=== PATIENT | male | born 1955 | race Caucasian/White ===

== ENCOUNTER → 2018-05-17 | Outpatient (CLI) | payer OTHER ==
[~2018-05-17] MED LIST: ACTOS15 MG PO; ADULT LOW DOSE81 MG PO; ALDACTONE25 MG PO; ALDACTONE50 MG PO; BENADRYL25 MG PO; CARVEDILOL25 MG PO; COMBIVENT INH; COREG CR20 MG PO; COZAAR 25MG TAB25 M1 PO; CYCLOPENTOLA1 %/2 M1 OP; FOLIC ACID1 MG PO; FUROSEMIDE 40 M40 M1 PO; GATIFLOXACIN; GEMFIBROZIL 60600 MG PO; GLUCOPHAGE500 MG; GLUCOPHAGE500 MG PO; K-DUR 20 MEQ T20 MEQ PO; MAG DELAY64 MG PO; MAG-OX 400 TAB400 M1 PO; PHENERGAN 25 MG25 M1 PO; PRED FORTE 1% EY5 M1 OP; QVAR HFA 440 MCG/UN1 INH; TRAZODONE 150150 M1 PO; TRILEPTAL150 MG PO; ULTRAM 50MG TAB50 MG PO; UNICOMPLEX M TA1 TA1; UNICOMPLEX M TA1 TA1 PO; VICODIN PO; WELCHOL 625 MG625 MG PO
== END ==
LOC: RAD 14:46
DX: M10.071 Idiopathic gout, right ankle and foot (principal)

== ENCOUNTER → 2019-04-17 | Outpatient (CLI) | payer OTHER ==
[~2019-04-17] VITALS: Ht 175.3 cm; Wt 97.5 kg
[~2019-04-17] MED LIST changes: +ALLOPURINOL 10100 M1 PO; +CO Q-10100 MG PO; +CRESTOR10 MG PO; +CYMBALTA30 MG PO; +FISH OIL 1,001000 M2 PO; -GATIFLOXACIN; +GATIFLOXACIN OPHTHALMIC; +GLUCOSAMINE H1500 MG PO; +KETO PO; +LOVASTATIN 20 M20 MG PO; +MAGOX 400400 MG PO; +METFORMIN HCL1000 MG PO; +PRESERVISION A1 EAC2 PO; +PROTONIX40 M1 PO; +VITAMIN B-121000 MC3 PO; +VITAMIN B-12500 MCG PO; +VITAMIN D1000 UNIT PO; +VITAMIN E100 UNI3 PO; +VITAMINC500 PO
--- NOTE | 2019-04-19 08:09 | P ---
[facility] [place] [address] PROCEDURE REPORT Name: ISABELLALORI Sandip Room #: REG [facility] Mihir#: [id number] Admission: 04/17/19 Attend Phys: Andrade Dyer Discharge: Date of : 53 Report #: [id number] THIS REPORT FOR: //name// CC: Andrade Galeano DATE OF SERVICE: 04/17/2019 PROCEDURE PERFORMED: Upper endoscopy with biopsies. HISTORY OF PRESENT ILLNESS: The patient is a 63-year-old male who is well known to me with previous history of hepatitis C and hepatitis B. He was treated for his hepatitis C with Harvoni. He also had a previous history of alcohol abuse, last upper endoscopy was in 2015. Possible short segment of Glez. I did not take biopsies as there was a possible trace varices in the distal esophagus, small hiatal hernia was noted at that time and mild gastritis. Biopsies at that time were negative for H. pylori. The patient does take Prilosec on a daily basis. In general, this controls the symptoms. REASON FOR UPPER ENDOSCOPY: Intermittent nausea. He is on multiple medications. He denies any dysphagia. Denies any emesis. He denies any bleeding. DESCRIPTION OF PROCEDURE: The risks and benefits of the procedure were explained to the patient, those risks including but not limited to bleeding, perforation and the risk of sedation. He understood these risks and gave informed consent. Sedation was given using propofol and ketamine per Anesthesia. Next, using a standard Olympus upper endoscope, the scope was placed in the patient's mouth and advanced under direct vision through the esophagus, stomach and into the second portion of the duodenum. The larynx was normal in appearance. The upper and mid esophagus was normal. Again, at the GE junction, a possible short segment of Glez was noted. No obvious varices, but again due to his previous history of hepatitis as well as alcohol use, there is possible trace varices in this area. I did not obtain biopsies. There is no esophagitis noted or stricture. Overall, the gastric mucosa was normal in the fundus and body, mild erythema was noted in the gastric antrum. Biopsies were obtained to rule out H. pylori. The pylorus was normal and patent. The duodenal bulb, first and second portion were all normal. The scope was then withdrawn and the procedure terminated. The patient tolerated the procedure well. IMPRESSION: 1. Mild gastritis. 2. 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 [facility] [address] [place] [address] PROCEDURE REPORT Name: LORI MASON Room #: REG CLConrado Leonard.#: [id number] Admission: 04/17/19 Attend Phys: Andrade Dyer Discharge: Date of : 53 Report #: [id number] 3. Otherwise, normal upper endoscopy. RECOMMENDATIONS: 1. Await biopsy results. 2. Would continue PPI therapy. 3. Could consider Zofran on a p.r.n. basis. Thank you for allowing me to participate in his care. <ELECTRONICALLY SIGNED> By: Andrade Mojica MD 04/19/19 0809 1014 2215 Andrade Mojica MD /nt
--- NOTE | 2019-04-19 14:07 | PATH ---
[facility] [address] [place] [address] PATHOLOGY RPT PROCEDURE Name: LARON MASON Room #: REG [facility] Aisha.#: [id number] Admission: 04/17/19 Date of : 53 Discharge: Report #: [id number] Path Case #: [id number] [facility] Accession Number: [id number] . 01 Material submitted: . stomach - BIOPSY GASTRITIS R/O H. PYLORI . 01 Clinical history: . Reflux, vomiting Gastritis Rule out H. pylori . 02 Diagnosis: Stomach, biopsy: - Chronic superficial gastritis, mild. - No evidence of Helicobacter pylori on immunoperoxidase stain. . (SKM:mml; 04/19/2019) COUNT INCLUDES THE [facility] 04/19/2019 1012 Local . 02 Electronically signed: . Lazaro Jensen MD, Pathologist NPI- [id number] . 01 Gross description: . The specimen is received in formalin, labeled "Laron Mason, BX gastritis" and consists of 3 fragments of pink-sandoval tissue measuring between 0.3 x 0.2 cm and 0.6 x 0.3 cm which are entirely submitted in A1. (SDY; 04/18/2019) SYU/SYU 04/18/2019 1055 Local . 02 Pathologist provided ICD-10: K29.30 . 02 CPT . 897968, D91639 Specimen Comment: A courtesy copy of this report has been sent to Specimen Comment: [phone], . Specimen Comment: Report sent to / DR BOYCE Performed at: [address], [place] [id number] MD Koffi Herrmann MD Phone: [phone] Performed at: [address] [id number] MD Belén Wilhelm MD Phone: [phone]
== END | disposition home or self-care (01) ==
LOC: GI 08:19
DX: R11.0 Nausea (principal); K29.50 Unspecified chronic gastritis without bleeding; K44.9 Diaphragmatic hernia without obstruction or gangrene; F17.210 Nicotine dependence, cigarettes, uncomplicated; F32.9 Major depressive disorder, single episode, unspecified; I10 Essential (primary) hypertension; E78.5 Hyperlipidemia, unspecified; E11.9 Type 2 diabetes mellitus without complications; J45.909 Unspecified asthma, uncomplicated; Z98.890 Other specified postprocedural states; Z79.899 Other long term (current) drug therapy; Z88.8 Allergy status to other drugs, medicaments and biological substances; Z79.82 Long term (current) use of aspirin; Z95.5 Presence of coronary angioplasty implant and graft; Z95.810 Presence of automatic (implantable) cardiac defibrillator
CPT/HCPCS: 62110; 62900

== ENCOUNTER 2019-05-15 14:06 | Inpatient (IN) | payer OTHER ==
[~2019-05-15] VITALS: Ht 175.3 cm; Wt 90.3 kg
[2019-05-15 14:19] VITALS: BP 113/80
[2019-05-15] MEDS ORDERED: CARVEDILOL12.5 MG PO (14:32)
[2019-05-15] MEDS ORDERED: JANUVIA100 MG PO (14:37)
[2019-05-15] MEDS ORDERED: WELLBUTRIN SR150 M1 PO (14:37)
[2019-05-15 14:57] LABS: ABSOLUTE NEUTROPHILS 5.2 thou/uL (1.4-8.2); BASOPHILS 0.7 % (0.0-2.0); EOSINOPHILS 1.7 % (0.0-3.0); HEMATOCRIT 42.9 % (42.0-52.0); HEMOGLOBIN 14.7 gm/dL (14.0-18.0); LYMPHOCYTES 28.7 % (24.0-44.0); MCHC 34.2 g/dL (28.0-37.0); MCV 90.5 fL (80.0-100.0); MONOCYTES 7.8 % (1.0-8.0); PLATELET COUNT 120 thou/uL (150-400); POLYS 61.1 % (36.0-66.0); RBC 4.74 mil/uL (4.50-6.00); RDW 13.6 % (10.5-14.5); WBC 8.6 thou/uL (4.0-11.0)
[2019-05-15 15:04] LABS: ANION GAP 10 mmol/L (7-16); BUN 22 mg/dL (7-18); CALCIUM 9.7 mg/dL (8.5-10.1); CHLORIDE 103 mmol/L (98-107); CO2 26 mmol/L (21-32); CREATININE 1.5 mg/dL (0.7-1.3); GLUCOSE 104 mg/dL (74-106); POTASSIUM 4.4 mmol/L (3.5-5.1); SODIUM 139 mmol/L (136-145)
[2019-05-15 15:15] LABS: ALBUMIN 3.9 g/dL (3.4-5.0); MAGNESIUM 1.3 mg/dL (1.8-2.4); SALICYLATE 4.7 mg/dL (2.8-20.0); SGOT 30 U/L (15-37); SGPT 33 U/L (30-65); TOTAL BILIRUBIN 0.7 mg/dL (<0.1-1.0); TOTAL PROTEIN 7.8 g/dL (6.4-8.2); TROPONIN-I <0.06 ng/mL (<0.06)
[2019-05-15 16:29] VITALS: BP 123/93
[2019-05-15 16:38] LABS: URINE BILIRUBIN NEGATIVE (Negative); URINE BLOOD NEGATIVE (Negative); URINE CLARITY CLEAR; URINE COLOR YELLOW; URINE GLUCOSE-RANDOM* NEGATIVE (Negative); URINE KETONES NEGATIVE (Negative); URINE LEUKOCYTES-REFLEX NEGATIVE (Negative); URINE NITRITE-REFLEX NEGATIVE (Negative); URINE PROTEIN (DIPSTICK) NEGATIVE (Negative); URINE UROBILINOGEN 0.2 E.U./dl (0.2-1.0)
[2019-05-15 16:45] LABS: AMP/METHAMP Negative (Negative); BARBITURATES Negative (Negative); BENZODIAZEPINES Negative (Negative); COCAINE Negative (Negative); METHADONE Negative (Negative); OPIATES Negative (Negative); PCP Negative (Negative)
[2019-05-15 18:07] VITALS: BP 104/71
--- NOTE | 2019-05-15 19:45 | NUR ---
PT ARRIVES TO FLOOR FROM ER ACCOMPNIED BY JOHAN. REPORTS INCREASED DEPRESSIVE SYMPTOMS INCLUDING SIGNIFICANT INSOMNIA SLEEPING ONLY 1 HR PER NIGHT X 2-3 NIGHTS-INCREASED IRRITABILITY,AGITATION FEELINGS OF HOPLESSNESS-DENIES ACTIVE SI/SH-DOES REPORT SOME RECENT PASSIVE SI THOUGHTS "EASIER TO BE " ORIENTED TO ROOM AND UNIT-FOOD FLUIDS OFFERED ACCEPTED
[2019-05-15 20:05] VITALS: BP 124/82
--- NOTE | 2019-05-15 20:07 | NUR ---
63 yo male admitted per stretcher to 525 for SI without a plan. Reports increased depression over past several months r/t relationship with . Increased frequency of SI over past 3 days but has no plan. Alert and orientated to self, place and situation. Thought today was 05/05. Calm t/o assessment but states that he is anxious and upset. Able to ambulate without difficulty in room. Color pink with brisk capillary refill and palpable peripheral pulses. No edema. Regular HR auscultated. Pacemaker palpated in L upper chest. Breath sounds clear t/o, bilaterally equal. Active bowel sounds over soft, rounded abdomen. Stool this am by self report. R eye without vision, states retina is detached. orientated to unit by nurse gastroenterology manager, home for evening.
--- NOTE | 2019-05-16 00:55 | NUR ---
Care assumed of patient at 1915: Patient alert and oriented x4. Patient pleasant and cooperative. Patient restless at times and is observed pacing about the unit and his room. Patient compliant with nursing assessment. Patient denies SI/HI/AH. Patient reports that he was in his room earlier and had visualized his sheets moving. Patient stated that he understands that they were not moving but it "caught my attention". Patient expresses concern that he is not going to be able to sleep tonight. Patient states that he has not been able to sleep for a full night since approximately 2 weeks ago. No delusional or paranoia behaviors observed. Denies pain or discomfort. Patient reported that he had not ate dinner and was hungry. Patient offered a meal tray in which he ate 100%. Patient took HS medication whole without difficulty. Spoke with NIYAH Bailey, and obtained an order for Trazodone 25mg po 1x dose, may repeat in 1 hour if still awake. First dose was provided and patient was able to sleep approximately 1.5 hours. Patient provided second dose and is currently resting quietly. No agitation or aggression observed. Patient has been repectful and appreciative this shift.
--- NOTE | 2019-05-16 07:49 | EKG ---
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: MP : 1955 Requested By: David Ha Order Number: [id number] MD: Ector Booker Measurements Intervals [place] Rate: 69 P: 41 NH: 175 QRS: -55 QRSD: 117 T: -2 QT: 404 QTc: 433 Interpretive Statements Sinus rhythm Left anterior fascicular block Anterior infarct, old Compared to ECG 12/25/2009 11:32:57 Left anterior fascicular block now present Left-axis deviation no longer present Myocardial infarct finding still present Electronically Signed On 05-16-2019 7:49:49 CDT by Ector Booker [email or web address] <ELECTRONICALLY SIGNED> By: Ector Booker MD 05/16/19 0749 1624 1624 Ector Booker MD /EPI
[2019-05-16 09:09] VITALS: BP 114/83
--- NOTE | 2019-05-16 10:13 | NUR ---
ASSUMED CARE AT 0700 THIS MORNING. PT. COOPERATIVE WITH TAKING MEDICATIONS, EATING ON THE UNIT. DURING MORNING GROUP, HOWEVER, HE EASILY GOT AGITATED WITH THE GROUP AND WALKED OUT STATING IN A LOUD VOICE, "I AM NOT HERE FOR THAT, I THOUGHT YOU GOT WELL HERE". HE PACED IN THE [place] FOR A WHILE, BEFORE SETTLING DOWN IN A CHAIR ON THE UNIT. THIS RN TALKED TO THE PT. AFTER GROUP, HE APPOLOGIZED TO RT LUAN. HE THEN RETURNED TO HIS ROOM. HIS GOAL TODAY IS TO TALK TO 2 INDIVIDUALS TODAY.
[2019-05-16 10:17] VITALS: BP 114/83
--- NOTE | 2019-05-16 16:43 | NUR ---
SONU contacted [facility] to inquire about their PHP groups. She was told by the front desk receptionist that pt will need to present in person for an intake. He can do so M,W, F at [address] or M-F at [address] . He will need his photo i.d. and insurance. SW team will continue to follow pt during his stay.
[2019-05-16 19:50] VITALS: BP 123/81
--- NOTE | 2019-05-17 00:12 | NUR ---
Care assumed of patient at 1915: Patient alert and oriented x4. Patient pleasant and calm. Patient compliant with nursing assessment. Denies pain or discomfort. Denies SI/HI/AH/VH. No delusional or paranoia behaviors observed. Patient observed sitting in another peers room conversing. Patient educated that he is not to be in other peers rooms and they could converse in the day room. Patient apologetic and stated he understood. Patient declined HS snack. Patient took HS medication whole without difficulty. Patient then observed in his room conversing with the same peer. Patient re-directed again that peers may not be in other peers rooms. Patient again apologetic and came with peer to the day room to converse. Patient requested "sleeping pill". Patient informed that the dose of Trazodone he received the previous night was a one time dose. Patient became anxious and asked how he was supposed to sleep. Nurse notified NIYAH Reynolds and order was obtained for Trazodone 50mg po qHS. Patient reports that "this is not the place for a robb like me" and he is excited to go home tomorrow. Spoke with patient about his insomnia, depression and anxiety. Patient stated that he felt better now. Patient up pacing the unit at approximately 2230. Trazodone offered to patient. Patient is now refusing and states that he wants to try to sleep without it. Patient states he needs to get home and "make things right" with his . Patient continues to have broken sleep at this time.
--- NOTE | 2019-05-17 07:30 | NUR ---
Assumed care of patient this am. Patient ambulatory sitting in the mileu. Patient calm, content, and pleasant. Patients affect relaxed and normal. Patient alert and oriented x4. Breath sounds clear bilaterally, bowel sounds present, heart tones audible s1 and s2. Patient denies pain. Patient adherent with scheduled medications.
[2019-05-17 08:00] VITALS: BP 119/86
[2019-05-17 08:28] VITALS: BP 119/86
[2019-05-17] MEDS ORDERED: TRAZODONE HCL50 MG PO (11:22)
[2019-05-17] MEDS ORDERED: TRILEPTAL150 MG PO (11:25)
[2019-05-17 11:28] VITALS: BP 119/86
--- NOTE | 2019-05-17 11:35 | NUR ---
SONU D/C note SW met with pt's and pt. Pt agreed to go to [facility] to enroll in services for PHP classes. said she agrees for him to come home as long as he goes through with that plan. Pt admitted that he and talked about a separation. Both said they did better when she was working and he stayed at home; the retired again in 2014. The psych doctor came into the meeting and provided instruction on medication, and education to pt and on the benefits of PHP group classes. No other needs for SW team to address at this time.
--- NOTE | 2019-05-18 23:06 | H ---
[facility] [place] [address] HISTORY AND PHYSICAL Name: KADENLORI THACKER Room #: 525B-B DIS IN M.R.#: [id number] Admission: 05/15/19 Attend Phys: Leland Watt DO Discharge: 05/17/19 Date of : 53 Report #: [id number] THIS REPORT FOR: //name// CC: Leland Watt Lazaro Lara DATE OF SERVICE: 05/16/2019 INPATIENT PSYCHIATRIC EVALUATION ATTENDING PHYSICIAN: Leland Watt DO [employer] OPERATOR: Hospitalist Service, Dr. Chin Engle. REASON FOR ADMISSION: Severe depression including suicidal ideation. SOURCES OF INFORMATION: Interview with the patient, chart review. HISTORY OF PRESENT ILLNESS: This is a 63-year-old male [place]. The patient presented to the Emergency Room at [facility] yesterday with complaints of agitation. He was brought to the ED because over the last 2 days, he has become increasingly hostile and agitated. His accompanied him and she stated 4 days ago, he was switched from taking duloxetine to Wellbutrin and she thinks that is what has caused his recent behavior change. The patient reported that he is frustrated and that he does not want to be here. He reported that "when people tell me to calm down and then I am going to be okay, I feel like I want to go crazy on someone and chop their head off." He states that he feels like he just "wants to ." He states he is anxious right now and he feels like this typically smokes marijuana and feels a lot better. He stated he is feeling anxious and upset because his health is bad. He reports having cirrhosis secondary to hepatitis C and alcohol use, heart failure due to massive WI in 2003 with residual ejection fraction of 25%. The patient is also angry because he states he went to [facility] little over a week ago for vomiting and diarrhea and they told him nothing was wrong and felt like nobody was listening to him. Additionally, he told me he received in the mail a $9000 bill from [facility]. He denies any chest pain, abdominal pain, nausea or vomiting at this time. Per , the patient gets agitated when he drinks, but never this severe. In the ER, she reported he has not drink in a week. The patient states it has been 3 months, unclear why there is a discrepancy. PAST MEDICAL HISTORY: Includes non-insulin dependent diabetes mellitus; WI in 2003; oral surgery, maxillary extractions, upper denture; controlled GERD; asthma, no inhalers; hypertension; hyperlipidemia; cirrhosis with hepatitis C, diagnosed and treated in 2014; retinal detachment on his right eye. [facility] [address] [place] [address] HISTORY AND PHYSICAL Name: LORI MASON Room #: 525B-B [facility] IN M.R.#: [id number] Admission: 05/15/19 Attend Phys: Leland Watt DO Discharge: 05/17/19 Date of : 53 Report #: [id number] PAST SURGICAL HISTORY: Included arthroscopic surgery on the right knee, colonoscopy, cardiac stent placement in 2003, oral surgery due for maxillary extractions. PCP is Dr. Lara; chamber walker, Dr. Omkar Macdonald. SUBSTANCE HISTORY: Smoking x 30 years. Prior to 5 years ago, the patient used drugs heavily. He reports using cocaine, LSD, Quaaludes in the past things such as that. HOME MEDICATIONS: Numerous and include spironolactone 50 mg daily, furosemide 40 mg p.o. daily, carvedilol 12.5 mg p.o. b.i.d., sitagliptin which is Januvia 100 mg p.o. daily, bupropion 150 mg p.o. daily, aspirin 81 mg p.o. daily, folic acid 1 mg daily, losartan 25 mg daily, magnesium oxide 400 mg daily, metformin 1000 mg p.o. b.i.d., allopurinol 100 mg daily, pantoprazole 40 mg p.o. daily, rosuvastatin 10 mg p.o. daily., Co-Q vitamins, cyanocobalamin 1000 mcg p.o. daily, fish oil 1000 mcg p.o. daily, multivitamin, cholecalciferol 1000 units daily, glucosamine 1500 mg p.o. q.a.m., vitamin C 1000 mg p.o. q.a.m., vitamin E 100 units p.o. q.a.m. ALLERGIES: LISINOPRIL causes itching. REVIEW OF SYSTEMS: Yesterday from the ER, CONSTITUTIONAL: Denies fever, chills, malaise, and unexplained weight change. RESPIRATORY: Denies cough, shortness of breath, hemoptysis or respiratory distress. CARDIOVASCULAR: Denies chest pain, chest pain with exertion or edema. GASTROINTESTINAL: Denies abdominal pain, nausea, vomiting or diarrhea. GENITOURINARY: Denies burning, frequency or dysuria. MUSCULOSKELETAL: Denies back pain, joint pain, muscle weakness or myalgias. SKIN: Denies rash. NEUROLOGIC: Denies weakness, headache, loss of consciousness. PSYCHIATRIC HISTORY: Reports anxiety, SI, hopelessness. Weight 90.72 kilos. LABORATORY DATA: EKG was done, which showed regular rate at 69, left anterior fascicular block, old anterior WI, poor R-wave progression, nonspecific T-wave changes. THC screen was positive for marijuana. Chemistries from 05/15, sodium 139, potassium 4.4, chloride 103, bicarbonate 26, anion gap 10, BUN 22, creatinine 1.5, estimated GFR 47, glucose 104, calcium 9.7, magnesium 1.3. Total bilirubin 0.7, AST 30, ALT 33, alkaline phosphatase 47. Troponin less than 0.06. Total protein 7.8. Ammonia was less than 10. Albumin was 3.9. Urinalysis was negative. Serum alcohol less than 10. PHYSICAL EXAMINATION: VITAL SIGNS: Today, temperature 37.2, pulse 71, respirations 12, BP 114/83, O2 sat 98%. MUSCULOSKELETAL: Normal gait and station. HEENT: Right eye obviously atrophic, he said due to retinal detachment. [address] [address] HISTORY AND PHYSICAL Name: LORI MASON Room #: 525B-B [facility] IN .R.#: [id number] Admission: 05/15/19 Attend Phys: Leland Watt DO Discharge: 05/17/19 Date of : 53 Report #: [id number] MENTAL STATUS EXAMINATION: A well-developed cautious male, appearing stated age. Attention intact. Concentration is intact. Speech is normal rate, rhythm and tone. Thought process is linear and goal directed. Thought content focused on present situation, wanting to leave the hospital tomorrow. Additional information is 3 DUIs in the past, last one was about 8 years ago. He has one child, no contact with him, currently on his third marriage. Dr. Mojica is his risk adjustment specialist. Lives with his 23 years. Memory not formally tested. Insight limited. Judgment limited. Fund of knowledge, no greater than average. 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 WEAKNESSES: Advancing age, already been on disability. <ELECTRONICALLY SIGNED> By: Leland Watt DO 05/18/19 2306 1351 1520 Leland Watt DO /nt
--- NOTE | 2019-05-20 21:58 | D ---
[address] [address] DISCHARGE SUMMARY Name: MALIHALORI GALINDO Room #: 525B-B DIS IN M.R.#: [id number] Admission: 05/15/19 Attend Phys: Leland Watt DO Discharge: 05/17/19 Date of : 53 Report #: [id number] THIS REPORT FOR: //name// CC: Leland Watt Lazaro Lara DATE OF SERVICE: 05/17/2019 ATTENDING PHYSICIAN: Leland Watt DO. EMBEDDED SOFTWARE ENGINEER AT THE TIME OF DISCHARGE: Chin Engle MD DISCHARGE DIAGNOSES: Unspecified depressive disorder. MEDICAL COMORBIDITIES AT THE TIME OF DISCHARGE: History of hypertension, hyperlipidemia, cirrhosis, congestive heart failure, coronary artery disease, diabetes mellitus type 2. DISCHARGE PLAN: Discharge him to his private residence with his . Psychiatric followup in the [facility]. The patient is recommended to pursue a partial hospitalization program at [facility]. Also consideration should be given to some diagnosis treatment as I suspect he was drinking alcohol more recently than he reported. DIET: Heart healthy, low sodium. LABORATORY DATA: Significant laboratories from this admission, sodium 139, potassium 4.4, chloride 103, bicarbonate 26, BUN 22, creatinine 1.5, estimated GFR 47, glucose 104, calcium 9.7, magnesium 1.3, AST 30, ALT 33, alkaline phosphatase 47. Ammonia less than 10. Troponin 0.06, total protein 7.8, albumin 3.9. Hematology: White count 8.6, H and H 14.7 and 42.9, platelet count 120. Toxicology was positive for marijuana, which he did not directly admit to, otherwise negative. Urinalysis was negative. Chest x-ray showed patchy left basilar atelectasis, pneumonitis. I suspect there was some tobacco abuse going on as well. He did not admit to that I should add. DISCHARGE MEDICATIONS: Aspirin 81 mg p.o. daily cardioprotection, folic acid 1 mg p.o. daily supplementation, spironolactone 50 mg p.o. daily for potassium replacement and hypertension, Lasix 40 mg p.o. daily, CHF, losartan 25 mg p.o. daily hypertension, magnesium oxide 400 mg p.o. daily supplementation, metformin 1000 mg twice a day for diabetes mellitus, allopurinol 100 mg p.o. daily, pantoprazole 40 mg p.o. daily, rosuvastatin 10 mg p.o. daily for hyperlipidemia, pantoprazole for GERD, cyanocobalamin 1000 mcg p.o. daily supplementation, fish oil 1000 mg oral daily, vitamin D3 1000 units p.o. q.a.m., ascorbic acid 500 mg p.o. q.a.m., vitamin E mixed 100 units p.o. q.a.m., carvedilol 12.5 mg oral twice daily for hypertension, on sitagliptin phosphate that is Januvia [address] [address] DISCHARGE SUMMARY Name: LORI MASON Room #: 525B-B [facility] IN M.R.#: [id number] Admission: 05/15/19 Attend Phys: Leland Watt DO Discharge: 05/17/19 Date of : 53 Report #: [id number] p.o. daily for his diabetes. He was getting 150 mg p.o. daily of Trileptal. I added that as a prescription and as I looked here, I accidentally noted it is stopped in the computer, he did get prescription for. Prior to admission, I believe, the story was that he was changed from duloxetine to Wellbutrin and I decided that that may have contributed to his emotional difficulties, so I think he will be better off with just a mood stabilizer at this point. PHYSICAL EXAMINATION: VITAL SIGNS: On the day of discharge as follows: Temperature 36.4, pulse 85, respirations 12, BP 119/86. MUSCULOSKELETAL: Normal gait and station. MENTAL STATUS EXAMINATION: This is a well-developed, fairly nourished male, appearing stated age. Attention limited. Concentration limited. Speech normal rate, volume and tone. Thought process is linear and goal directed. Thought content focused on discharge ameliorating in this situation, admitting to some dysfunctional habits. Denied SI, HI. Denied hopelessness, helplessness. Denied homicidal intent or plan. Memory not formally tested on day of discharge. Insight fair. Judgment fair to limited. Fund of knowledge above average. PROGNOSIS: For this patient is fair to guarded and will depend if he avoids alcohol or illicit substances including marijuana, pursues psychotherapy, works to better his marriage as he admitted there is some stress going on. <ELECTRONICALLY SIGNED> By: Leland Watt DO 05/20/19 2158 0942 1112 Leland Watt DO /nt
== END 2019-05-17 12:15 | disposition home or self-care (01) | DRG 881 ==
LOC: ER 14:06 → EROBS 16:30 → SBH 16:30
PROVIDERS: Emergency Medicine; ADMIT Psychiatry & Neurology Psychiatry
DX: F32.9 Major depressive disorder, single episode, unspecified (principal); E44.0 Moderate protein-calorie malnutrition; R45.851 Suicidal ideations; E11.9 Type 2 diabetes mellitus without complications; K21.9 Gastro-esophageal reflux disease without esophagitis; E78.5 Hyperlipidemia, unspecified; J45.909 Unspecified asthma, uncomplicated; M10.9 Gout, unspecified; I11.0 Hypertensive heart disease with heart failure; I50.9 Heart failure, unspecified; I25.10 Atherosclerotic heart disease of native coronary artery without angina pectoris; K74.60 Unspecified cirrhosis of liver; F17.210 Nicotine dependence, cigarettes, uncomplicated; Z68.29 Body mass index [BMI] 29.0-29.9, adult; I25.2 Old myocardial infarction; Z95.5 Presence of coronary angioplasty implant and graft; Z95.810 Presence of automatic (implantable) cardiac defibrillator; Z86.19 Personal history of other infectious and parasitic diseases; Z88.8 Allergy status to other drugs, medicaments and biological substances; Z79.84 Long term (current) use of oral hypoglycemic drugs
CPT/HCPCS: 10880